=== PATIENT | female | born 1965 | race Caucasian/White ===

== ENCOUNTER 2017-08-28 19:04 | Inpatient (IN) | payer MEDICAID ==
[~2017-08-28] VITALS: Ht 177.8 cm; Wt 87.8 kg
[2017-08-28] MEDS ORDERED: ALLO300T PO (19:14)
[2017-08-28] MEDS ORDERED: SODIUM CHLORIDE 0.9% 1,000ML IVBOLUS ONE (20:00)
[2017-08-28] MEDS ORDERED: ACETAMINOPHEN 325 MG TABLET PO ONE (20:00)
[2017-08-28] MEDS ORDERED: SODIUM CHLORIDE FLUSH 10ML SYR IVF ONE (20:00)
[2017-08-28] MEDS ORDERED: ACETAMINOPHEN 325 MG TABLET ONE (20:10)
[2017-08-28 20:29] LABS: MEAN CORPUSCULAR HEMOGLOBIN 23.8 pg (27.0-34.8); MEAN CORPUSCULAR HGB CONC 32.7 g/dL (32.4-35.8); MEAN CORPUSCULAR VOLUME 72.5 fL (80-100); MEAN PLATELET VOLUME 9.1 fL (7.4-10.4); PLATELET COUNT 166 x10^3/uL (130-400); RED BLOOD COUNT 3.81 x10^6/uL (3.82-5.3); RED CELL DISTRIBUTION WIDTH 20.9 % (9.6-15.2)
[2017-08-28] MEDS ORDERED: AMPICILLIN/SULBACTAM 3 GM in SODIUM CHLORIDE 0.9% 100 ML IV ONE (20:30)
[2017-08-28 20:37] LABS: ALBUMIN 2.6 g/dL (3.4-5.0); ANION GAP 10 mmol/L (5-15); CALCIUM 7.3 mg/dL (8.5-10.1); CHLORIDE 99 mmol/L (98-107)
[2017-08-28 20:39] LABS: INTERNATIONAL NORMALIZED RATIO 1.04 (0.93-1.1); PROTHROMBIN TIME 10.7 Seconds (9.6-11.5)
[2017-08-28 20:41] LABS: ALANINE AMINOTRANSFERASE 15 U/L (12-78); ALKALINE PHOSPHATASE 74 U/L (45-117); CREATININE 0.82 mg/dL (0.55-1.02); TOTAL PROTEIN 6.5 g/dL (6.4-8.2)
[2017-08-28 21:00] LABS: BASOPHILS # (AUTO) 0.06 x10^3/uL (0-0.1); BASOPHILS % (AUTO) 1 % (0-1); EOSINOPHILS % (AUTO) 0 % (1-7); LYMPHOCYTES # (AUTO) 0.65 x10^3/uL (1-3.4); LYMPHOCYTES % (AUTO) 5 % (22-44); MD SCAN; MONOCYTES # (AUTO) 0.37 x10^3/uL (0.2-0.8); MONOCYTES % (AUTO) 3 % (2-9); NEUTROPHILS # (AUTO) 11.47 x10^3/uL (1.8-6.8); NEUTROPHILS % (AUTO) 91 % (42-75)
[2017-08-28 21:34] LABS: MICROSCOPIC INDICATED
[2017-08-28 21:35] LABS: CULTURE INDICATED? YES
[2017-08-28] MEDS ORDERED: DOCUSATE 100 MG CAPSULE PO PRN (22:00)
[2017-08-28] MEDS ORDERED: hydrALAzine 20 MG/ML, 1ML IVPush PRN (22:00)
[2017-08-28] MEDS ORDERED: ONDANSETRON 2MG/ML, 2ML IVPush PRN (22:00)
[2017-08-28] MEDS ORDERED: BISACODYL 10 MG SUPP PR PRN (22:00)
[2017-08-28] MEDS ORDERED: VANCOMYCIN PER PHARMACY MC PRN (22:00)
[2017-08-28] MEDS ORDERED: POLYETHYLENE GLYCOL 17 GM PACKET PO PRN (22:00)
[2017-08-28 22:07] LABS: AMPHETAMINE SCREEN, URINE Negative (Negative); BARBITURATE SCREEN, URINE Negative (Negative); BENZODIAZEPINE SCREEN, URINE Negative (Negative); CANNABINOID SCREEN, URINE Positive (Negative); COCAINE SCREEN, URINE Negative (Negative); METHADONE SCREEN, URINE Negative (Negative); OPIATE SCREEN, URINE Positive (Negative)
[2017-08-28 22:15] VITALS: BP 97/54
[2017-08-28] MEDS ORDERED: PHARMACOKINETIC CONSULTATION MC ONE (22:30)
[2017-08-28] MEDS ORDERED: PHARMACOKINETIC MONITORING MC PRN (22:30)
[2017-08-29] MEDS: VANCOMYCIN 1,600 MG in SODIUM CHLORIDE 0.9% 250 ML IV SCH ×2 (01:09→13:18)
[2017-08-29] MEDS: ENOXAPARIN 40 MG/0.4 ML SQ SCH (01:09)
[2017-08-29] MEDS: SODIUM CHLORIDE 0.9% 1,000 ML IV SCH ×2 (01:10→09:38)
[2017-08-29 01:14] VITALS: BP 97/60
[2017-08-29] MEDS: AMPICILLIN/SULBACTAM 3 GM in SODIUM CHLORIDE 0.9% 100 ML IV SCH ×3 (06:06→17:44)
[2017-08-29 06:12] LABS: BASOPHILS # (AUTO) 0.09 x10^3/uL (0-0.1); BASOPHILS % (AUTO) 1 % (0-1); EOSINOPHILS # (AUTO) 0.01 x10^3/uL (0-0.4); EOSINOPHILS % (AUTO) 0 % (1-7); LYMPHOCYTES # (AUTO) 0.43 x10^3/uL (1-3.4); LYMPHOCYTES % (AUTO) 5 % (22-44); MD NO; MEAN CORPUSCULAR HEMOGLOBIN 24.1 pg (27.0-34.8); MEAN CORPUSCULAR HGB CONC 33.5 g/dL (32.4-35.8); MEAN PLATELET VOLUME 8.7 fL (7.4-10.4); MONOCYTES # (AUTO) 0.22 x10^3/uL (0.2-0.8); MONOCYTES % (AUTO) 2 % (2-9); NEUTROPHILS # (AUTO) 8.63 x10^3/uL (1.8-6.8); NEUTROPHILS % (AUTO) 92 % (42-75); PLATELET COUNT 157 x10^3/uL (130-400); RED CELL DISTRIBUTION WIDTH 21.1 % (9.6-15.2)
[2017-08-29 06:22] LABS: ANION GAP 8 mmol/L (5-15); CALCIUM 7.4 mg/dL (8.5-10.1); CHLORIDE 103 mmol/L (98-107); CREATININE 0.73 mg/dL (0.55-1.02)
[2017-08-29 07:15] VITALS: BP 95/49
[2017-08-29] MEDS: ALLOPURINOL 300 MG TABLET PO SCH (09:38)
[2017-08-29] MEDS: KETOROLAC 30 MG/1 ML IVPush PRN ×3 (09:55→22:06)
[2017-08-29] MEDS: ACETAMINOPHEN 325 MG TABLET PO PRN (09:55)
[2017-08-29 13:12] VITALS: BP 95/61
[2017-08-29 18:38] VITALS: BP 97/68
[2017-08-30] MEDS: AMPICILLIN/SULBACTAM 3 GM in SODIUM CHLORIDE 0.9% 100 ML IV SCH ×5 (00:13→23:59)
[2017-08-30] MEDS: ENOXAPARIN 40 MG/0.4 ML SQ SCH (01:27)
[2017-08-30] MEDS: VANCOMYCIN 1,600 MG in SODIUM CHLORIDE 0.9% 250 ML IV SCH ×2 (01:27→13:22)
[2017-08-30 01:37] VITALS: BP 95/59
[2017-08-30] MEDS: KETOROLAC 30 MG/1 ML IVPush PRN ×3 (04:54→21:12)
[2017-08-30 05:22] LABS: BASOPHILS # (AUTO) 0.03 x10^3/uL (0-0.1); BASOPHILS % (AUTO) 0 % (0-1); EOSINOPHILS # (AUTO) 0.06 x10^3/uL (0-0.4); EOSINOPHILS % (AUTO) 1 % (1-7); LYMPHOCYTES # (AUTO) 0.46 x10^3/uL (1-3.4); LYMPHOCYTES % (AUTO) 7 % (22-44); MD NO; MEAN CORPUSCULAR HEMOGLOBIN 23.8 pg (27.0-34.8); MEAN CORPUSCULAR HGB CONC 32.6 g/dL (32.4-35.8); MEAN CORPUSCULAR VOLUME 72.9 fL (80-100); MEAN PLATELET VOLUME 9.3 fL (7.4-10.4); MONOCYTES # (AUTO) 0.37 x10^3/uL (0.2-0.8); MONOCYTES % (AUTO) 5 % (2-9); NEUTROPHILS # (AUTO) 6.08 x10^3/uL (1.8-6.8); NEUTROPHILS % (AUTO) 87 % (42-75); PLATELET COUNT 175 x10^3/uL (130-400); RED BLOOD COUNT 3.34 x10^6/uL (3.82-5.3)
[2017-08-30 05:26] LABS: ALANINE AMINOTRANSFERASE 16 U/L (12-78); ALBUMIN 2.1 g/dL (3.4-5.0); ANION GAP 7 mmol/L (5-15); CALCIUM 6.9 mg/dL (8.5-10.1); CHLORIDE 104 mmol/L (98-107); CREATININE 0.77 mg/dL (0.55-1.02)
[2017-08-30 05:29] LABS: ALKALINE PHOSPHATASE 66 U/L (45-117); BILIRUBIN,TOTAL 0.3 mg/dL (0.2-1.0); TOTAL PROTEIN 5.5 g/dL (6.4-8.2)
[2017-08-30 06:37] VITALS: BP 97/60
[2017-08-30] MEDS: ALLOPURINOL 300 MG TABLET PO SCH (07:48)
[2017-08-30 12:04] VITALS: BP 105/66
[2017-08-30] MEDS: ACETAMINOPHEN 325 MG TABLET PO PRN (12:18)
[2017-08-30 19:04] VITALS: BP 98/61
[2017-08-31] MEDS: ENOXAPARIN 40 MG/0.4 ML SQ SCH (01:12)
[2017-08-31] MEDS: VANCOMYCIN 1,600 MG in SODIUM CHLORIDE 0.9% 250 ML IV SCH ×2 (01:13→13:31)
[2017-08-31 02:01] VITALS: BP 99/64
[2017-08-31] MEDS: AMPICILLIN/SULBACTAM 3 GM in SODIUM CHLORIDE 0.9% 100 ML IV SCH ×3 (05:41→18:18)
[2017-08-31 07:57] VITALS: BP 102/60
[2017-08-31] MEDS: ALLOPURINOL 300 MG TABLET PO SCH (09:56)
[2017-08-31] MEDS: KETOROLAC 30 MG/1 ML IVPush PRN (09:56)
[2017-08-31 13:13] VITALS: BP 102/64
[2017-08-31] MEDS ORDERED: SULF1TAB24 PO (16:23)
[2017-08-31] MEDS ORDERED: LACT1CAP24 PO (16:23)
[2017-08-31] MEDS ORDERED: AMOX1TAB64 PO (16:23)
[2017-08-31 19:06] VITALS: BP 100/66
[2017-09-01] MEDS: AMPICILLIN/SULBACTAM 3 GM in SODIUM CHLORIDE 0.9% 100 ML IV SCH ×3 (00:19→12:40)
[2017-09-01 01:09] VITALS: BP 113/56
[2017-09-01] MEDS: VANCOMYCIN 1,600 MG in SODIUM CHLORIDE 0.9% 250 ML IV SCH ×2 (01:29→13:33)
[2017-09-01] MEDS: ENOXAPARIN 40 MG/0.4 ML SQ SCH (01:30)
[2017-09-01 06:37] VITALS: BP 105/65
[2017-09-01] MEDS: ALLOPURINOL 300 MG TABLET PO SCH (09:22)
[2017-09-01 14:08] VITALS: BP 108/66
== END 2017-09-01 16:50 | disposition home or self-care (01) | DRG 871 ==
LOC: ED 21:20 → EDIP 21:21 → 3NW 21:59
PROVIDERS: ADMIT Hospitalist; ATTEND Hospitalist
PROC: 0T9B70Z Drainage of Bladder with Drainage Device, Via Natural or Artificial Opening (ICD-10-PCS; principal; 2017-08-28)
DX: A41.9 Sepsis, unspecified organism (principal); E43 Unspecified severe protein-calorie malnutrition; C85.90 Non-Hodgkin lymphoma, unspecified, unspecified site; E87.1 Hypo-osmolality and hyponatremia; L03.115 Cellulitis of right lower limb; L03.116 Cellulitis of left lower limb; N39.0 Urinary tract infection, site not specified; Z66 Do not resuscitate; Z68.27 Body mass index [BMI] 27.0-27.9, adult; D64.9 Anemia, unspecified; F12.90 Cannabis use, unspecified, uncomplicated; F17.210 Nicotine dependence, cigarettes, uncomplicated; K74.60 Unspecified cirrhosis of liver; M10.9 Gout, unspecified; Z83.3 Family history of diabetes mellitus; Z98.84 Bariatric surgery status; Z98.42 Cataract extraction status, left eye; Z98.41 Cataract extraction status, right eye; Z98.51 Tubal ligation status; Z98.891 History of uterine scar from previous surgery; Z90.49 Acquired absence of other specified parts of digestive tract
CPT/HCPCS: 36415; 71045; 80048; 80053; 80202; 80307; 81001; 83605; 83735; 84100; 84145; 85025; 85610; 85730; 87040; 87086; 93970; 96365; J0295; J1650; J1885; J3370; J7030; J7050

== ENCOUNTER → 2017-09-02 | Outpatient (CLI) | payer MEDICAID ==
[~2017-09-02] MED LIST: ALLO300T PO; AMOX1TAB64 PO; LACT1CAP24 PO; SULF1TAB24 PO
== END | disposition home or self-care (01) ==
LOC: PETCFH 08:55
PROVIDERS: ATTEND Internal Medicine Hematology & Oncology
DX: C82.59 Diffuse follicle center lymphoma, extranodal and solid organ sites (principal); R59.1 Generalized enlarged lymph nodes
CPT/HCPCS: A9552

== ENCOUNTER 2017-09-04 18:05 | Inpatient (IN) | payer MEDICAID ==
[~2017-09-04] VITALS: Ht 177.8 cm; Wt 88.2 kg
[2017-09-04] MEDS ORDERED: SODIUM CHLORIDE FLUSH 10ML SYR IVF ONE (19:00)
[2017-09-04] MEDS ORDERED: SODIUM CHLORIDE 0.9% 1,000ML IVBOLUS ONE (19:00)
[2017-09-04] MEDS ORDERED: MORPHINE SULFATE 4 MG/ML, 1ML ONE ×2 (19:11→21:33)
[2017-09-04] MEDS: MORPHINE SULFATE 4 MG/ML, 1ML IV PRN ×2 (19:13→21:39)
[2017-09-04 19:24] LABS: MICROSCOPIC AUTO
[2017-09-04 19:27] LABS: CULTURE INDICATED? YES
[2017-09-04 19:51] LABS: BASOPHILS # (AUTO) 0.01 x10^3/uL (0-0.1); BASOPHILS % (AUTO) 0 % (0-1); EOSINOPHILS # (AUTO) 0.04 x10^3/uL (0-0.4); EOSINOPHILS % (AUTO) 1 % (1-7); LYMPHOCYTES # (AUTO) 0.65 x10^3/uL (1-3.4); LYMPHOCYTES % (AUTO) 12 % (22-44); MD NO; MEAN CORPUSCULAR HEMOGLOBIN 23.7 pg (27.0-34.8); MEAN CORPUSCULAR HGB CONC 32.6 g/dL (32.4-35.8); MEAN CORPUSCULAR VOLUME 72.8 fL (80-100); MEAN PLATELET VOLUME 7.7 fL (7.4-10.4); MONOCYTES # (AUTO) 0.51 x10^3/uL (0.2-0.8); MONOCYTES % (AUTO) 10 % (2-9); NEUTROPHILS % (AUTO) 77 % (42-75); PLATELET COUNT 354 x10^3/uL (130-400); RED BLOOD COUNT 3.42 x10^6/uL (3.82-5.3)
[2017-09-04 19:58] LABS: ALANINE AMINOTRANSFERASE 16 U/L (12-78); ALBUMIN 2.6 g/dL (3.4-5.0); ANION GAP 5 mmol/L (5-15); CALCIUM 8.1 mg/dL (8.5-10.1); CHLORIDE 108 mmol/L (98-107); CREATININE 0.93 mg/dL (0.55-1.02)
[2017-09-04 20:02] LABS: ALKALINE PHOSPHATASE 79 U/L (45-117); BILIRUBIN,TOTAL 0.2 mg/dL (0.2-1.0); TOTAL PROTEIN 6.9 g/dL (6.4-8.2); TROPONIN I < 0.015 ng/mL (0.000-0.045)
[2017-09-04] MEDS ORDERED: OMNIPAQUE 350 MG/ML, 100ML BOTTLE ONE (21:10)
[2017-09-04] MEDS ORDERED: FUROSEMIDE 40 MG/4 ML ONE (21:24)
[2017-09-04] MEDS ORDERED: FUROSEMIDE 100 MG/10 ML IV ONE (21:30)
[2017-09-04 23:30] VITALS: BP 119/75
[2017-09-04] MEDS ORDERED: ACETAMINOPHEN 325 MG TABLET PO PRN (23:30)
[2017-09-04] MEDS ORDERED: DOCUSATE 100 MG CAPSULE PO PRN (23:30)
[2017-09-04] MEDS ORDERED: hydrALAzine 20 MG/ML, 1ML IVPush PRN (23:30)
[2017-09-04] MEDS ORDERED: POLYETHYLENE GLYCOL 17 GM PACKET PO PRN (23:30)
[2017-09-04] MEDS ORDERED: BISACODYL 10 MG SUPP PR PRN (23:30)
[2017-09-05] MEDS: ENOXAPARIN 40 MG/0.4 ML SQ SCH ×2 (00:09→22:14)
[2017-09-05] MEDS ORDERED: HYDROcodone/APAP 10/325 MG TABLET PO ONE (02:00)
[2017-09-05 02:21] VITALS: BP 114/64
[2017-09-05 05:09] LABS: BASOPHILS # (AUTO) 0.01 x10^3/uL (0-0.1); BASOPHILS % (AUTO) 0 % (0-1); EOSINOPHILS # (AUTO) 0.07 x10^3/uL (0-0.4); EOSINOPHILS % (AUTO) 1 % (1-7); LYMPHOCYTES # (AUTO) 0.85 x10^3/uL (1-3.4); LYMPHOCYTES % (AUTO) 17 % (22-44); MD NO; MEAN CORPUSCULAR HEMOGLOBIN 23.9 pg (27.0-34.8); MEAN CORPUSCULAR HGB CONC 32.6 g/dL (32.4-35.8); MEAN CORPUSCULAR VOLUME 73.1 fL (80-100); MEAN PLATELET VOLUME 8.1 fL (7.4-10.4); MONOCYTES # (AUTO) 0.48 x10^3/uL (0.2-0.8); MONOCYTES % (AUTO) 10 % (2-9); NEUTROPHILS # (AUTO) 3.62 x10^3/uL (1.8-6.8); NEUTROPHILS % (AUTO) 72 % (42-75); PLATELET COUNT 314 x10^3/uL (130-400); RED BLOOD COUNT 3.35 x10^6/uL (3.82-5.3); RED CELL DISTRIBUTION WIDTH 20.2 % (9.6-15.2)
[2017-09-05 05:16] LABS: ANION GAP 6 mmol/L (5-15); CALCIUM 8.1 mg/dL (8.5-10.1); CHLORIDE 110 mmol/L (98-107); CREATININE 0.96 mg/dL (0.55-1.02)
[2017-09-05 06:14] VITALS: BP 117/79
[2017-09-05] MEDS: LACTOBACILLUS CHEW TABLET PO SCH ×3 (08:38→22:14)
[2017-09-05] MEDS: ALLOPURINOL 300 MG TABLET PO SCH (08:38)
[2017-09-05] MEDS: SODIUM CHLORIDE FLUSH 10ML SYR IVF SCH ×2 (08:39→19:48)
[2017-09-05] MEDS ORDERED: AMOXICILLIN/CLAV 875-125MG TABLET PO SCH (09:00)
[2017-09-05] MEDS ORDERED: SULFAMETH./TRIMETHOPRIM DS 800MG/160MG TABLET PO SCH (09:00)
[2017-09-05] MEDS ORDERED: HYDROcodone/APAP 5/325 TABLET ONE (10:32)
[2017-09-05] MEDS: HYDROcodone/APAP 5/325 TABLET PO PRN ×3 (10:35→22:14)
[2017-09-05] MEDS ORDERED: GADOBUTROL 10 MMOL/10 ML PFS ONE (12:40)
[2017-09-05 13:05] VITALS: BP 114/78
[2017-09-05 16:00] LABS: AMPHETAMINE SCREEN, URINE Negative (Negative); BARBITURATE SCREEN, URINE Negative (Negative); BENZODIAZEPINE SCREEN, URINE Negative (Negative); CANNABINOID SCREEN, URINE Negative (Negative); COCAINE SCREEN, URINE Negative (Negative); METHADONE SCREEN, URINE Negative (Negative); OPIATE SCREEN, URINE Positive (Negative)
[2017-09-05] MEDS: ONDANSETRON 2MG/ML, 2ML IVPush PRN ×2 (16:13→22:14)
[2017-09-05] MEDS ORDERED: LORazepam 2 MG/ML, 1ML ONE (16:57)
[2017-09-05] MEDS ORDERED: LORazepam 2 MG/ML, 1ML IVPush ONE (17:00)
[2017-09-05 19:24] VITALS: BP 111/69
[2017-09-05] MEDS: AMPICILLIN/SULBACTAM 3 GM in SODIUM CHLORIDE 0.9% 100 ML IV SCH (19:48)
[2017-09-05] MEDS: DOXYCYCLINE 100MG TABLET PO SCH (22:13)
[2017-09-06] MEDS: AMPICILLIN/SULBACTAM 3 GM in SODIUM CHLORIDE 0.9% 100 ML IV SCH ×4 (01:27→19:57)
[2017-09-06] MEDS ORDERED: LORazepam 2 MG/ML, 1ML IVPush ONE (02:00)
[2017-09-06 02:06] VITALS: BP 104/69
[2017-09-06] MEDS ORDERED: LORazepam 2 MG/ML, 1ML ONE (02:07)
[2017-09-06 03:03] LABS: FOLATE LEVEL 11.5 ng/mL (3.1-17.5)
[2017-09-06] MEDS: ONDANSETRON 2MG/ML, 2ML IVPush PRN ×3 (04:16→18:46)
[2017-09-06] MEDS: HYDROcodone/APAP 5/325 TABLET PO PRN ×2 (04:16→18:46)
[2017-09-06 08:00] VITALS: BP 110/68
[2017-09-06] MEDS ORDERED: MORPHINE SULFATE 4 MG/ML, 1ML IVPush PRN (09:30)
[2017-09-06] MEDS: ALLOPURINOL 300 MG TABLET PO SCH (10:12)
[2017-09-06] MEDS: LACTOBACILLUS CHEW TABLET PO SCH ×3 (10:12→19:56)
[2017-09-06] MEDS: DOXYCYCLINE 100MG TABLET PO SCH ×2 (10:12→19:57)
[2017-09-06] MEDS: SODIUM CHLORIDE FLUSH 10ML SYR IVF SCH ×2 (10:12→19:58)
[2017-09-06 13:12] VITALS: BP 106/63
[2017-09-06 19:45] VITALS: BP 116/71
[2017-09-06] MEDS: ENOXAPARIN 40 MG/0.4 ML SQ SCH (19:57)
[2017-09-07] MEDS: AMPICILLIN/SULBACTAM 3 GM in SODIUM CHLORIDE 0.9% 100 ML IV SCH ×4 (03:00→20:31)
[2017-09-07 07:13] VITALS: BP 112/71
[2017-09-07] MEDS: ONDANSETRON 2MG/ML, 2ML IVPush PRN (07:27)
[2017-09-07] MEDS: HYDROcodone/APAP 5/325 TABLET PO PRN ×4 (07:28→23:13)
[2017-09-07] MEDS: SODIUM CHLORIDE FLUSH 10ML SYR IVF SCH ×2 (07:28→20:32)
[2017-09-07] MEDS: LACTOBACILLUS CHEW TABLET PO SCH ×3 (08:55→20:31)
[2017-09-07] MEDS: ALLOPURINOL 300 MG TABLET PO SCH (08:55)
[2017-09-07] MEDS: DOXYCYCLINE 100MG TABLET PO SCH ×2 (08:55→20:31)
[2017-09-07 13:01] VITALS: BP 116/70
[2017-09-07 19:41] VITALS: BP 107/64
[2017-09-07] MEDS: ENOXAPARIN 40 MG/0.4 ML SQ SCH (20:31)
[2017-09-08 02:30] VITALS: BP 101/68
[2017-09-08] MEDS: AMPICILLIN/SULBACTAM 3 GM in SODIUM CHLORIDE 0.9% 100 ML IV SCH ×2 (02:51→09:59)
[2017-09-08] MEDS: HYDROcodone/APAP 5/325 TABLET PO PRN ×5 (03:07→21:09)
[2017-09-08 03:27] LABS: ALANINE AMINOTRANSFERASE 11 U/L (12-78); ALBUMIN 2.3 g/dL (3.4-5.0); ANION GAP 6 mmol/L (5-15); CALCIUM 7.9 mg/dL (8.5-10.1); CHLORIDE 107 mmol/L (98-107); CREATININE 0.84 mg/dL (0.55-1.02)
[2017-09-08 03:30] LABS: ALKALINE PHOSPHATASE 62 U/L (45-117); BILIRUBIN,TOTAL 0.1 mg/dL (0.2-1.0); TOTAL PROTEIN 6.2 g/dL (6.4-8.2)
[2017-09-08 03:31] LABS: BASOPHILS # (AUTO) 0.03 x10^3/uL (0-0.1); BASOPHILS % (AUTO) 1 % (0-1); EOSINOPHILS # (AUTO) 0.05 x10^3/uL (0-0.4); EOSINOPHILS % (AUTO) 2 % (1-7); LYMPHOCYTES # (AUTO) 0.89 x10^3/uL (1-3.4); LYMPHOCYTES % (AUTO) 26 % (22-44); MD NO; MEAN CORPUSCULAR HEMOGLOBIN 23.6 pg (27.0-34.8); MEAN CORPUSCULAR HGB CONC 32.1 g/dL (32.4-35.8); MEAN CORPUSCULAR VOLUME 73.5 fL (80-100); MEAN PLATELET VOLUME 7.5 fL (7.4-10.4); MONOCYTES # (AUTO) 0.36 x10^3/uL (0.2-0.8); MONOCYTES % (AUTO) 10 % (2-9); NEUTROPHILS # (AUTO) 2.16 x10^3/uL (1.8-6.8); NEUTROPHILS % (AUTO) 62 % (42-75); PLATELET COUNT 326 x10^3/uL (130-400); RED BLOOD COUNT 3.21 x10^6/uL (3.82-5.3); RED CELL DISTRIBUTION WIDTH 21.5 % (9.6-15.2)
[2017-09-08 07:23] VITALS: BP 103/76
[2017-09-08] MEDS: LACTOBACILLUS CHEW TABLET PO SCH ×3 (07:26→21:09)
[2017-09-08] MEDS: ALLOPURINOL 300 MG TABLET PO SCH (07:26)
[2017-09-08] MEDS: DOXYCYCLINE 100MG TABLET PO SCH ×2 (07:27→21:10)
[2017-09-08] MEDS: SODIUM CHLORIDE FLUSH 10ML SYR IVF SCH ×2 (09:59→21:10)
[2017-09-08 12:29] VITALS: BP 121/62
[2017-09-08] MEDS: ONDANSETRON 2MG/ML, 2ML IVPush PRN (12:36)
[2017-09-08] MEDS ORDERED: DOXY100T PO (13:22)
[2017-09-08] MEDS ORDERED: HYDR-3240 PO (13:22)
[2017-09-08] MEDS ORDERED: AMOX1TAB12 PO (13:22)
[2017-09-08] MEDS ORDERED: CYANOCOBALAMIN 1,000 MCG/ML, 1ML IM ONE (14:00)
[2017-09-08 19:49] VITALS: BP 103/62
[2017-09-08] MEDS: AMOXICILLIN/CLAV 875-125MG TABLET PO SCH (21:09)
[2017-09-08] MEDS: ENOXAPARIN 40 MG/0.4 ML SQ SCH (21:10)
[2017-09-09 02:00] VITALS: BP 112/63
[2017-09-09 07:17] VITALS: BP 109/66
[2017-09-09] MEDS: SODIUM CHLORIDE FLUSH 10ML SYR IVF SCH (09:19)
[2017-09-09] MEDS: DOXYCYCLINE 100MG TABLET PO SCH (09:20)
[2017-09-09] MEDS: ALLOPURINOL 300 MG TABLET PO SCH (09:20)
[2017-09-09] MEDS: AMOXICILLIN/CLAV 875-125MG TABLET PO SCH (09:20)
[2017-09-09] MEDS: LACTOBACILLUS CHEW TABLET PO SCH (09:20)
[2017-09-09] MEDS: HYDROcodone/APAP 5/325 TABLET PO PRN (09:27)
== END 2017-09-09 10:55 | DRG 603 ==
LOC: ED 20:22 → EDIP 22:52 → 3NW 23:25
PROVIDERS: ADMIT Family Medicine; ATTEND Family Medicine
DX: L03.115 Cellulitis of right lower limb (principal); C85.90 Non-Hodgkin lymphoma, unspecified, unspecified site; E44.0 Moderate protein-calorie malnutrition; L03.116 Cellulitis of left lower limb; D50.9 Iron deficiency anemia, unspecified; D63.8 Anemia in other chronic diseases classified elsewhere; F12.90 Cannabis use, unspecified, uncomplicated; F17.210 Nicotine dependence, cigarettes, uncomplicated; F31.9 Bipolar disorder, unspecified; I89.0 Lymphedema, not elsewhere classified; K74.60 Unspecified cirrhosis of liver; M10.9 Gout, unspecified; Z59.0 Homelessness; Z66 Do not resuscitate; Z83.3 Family history of diabetes mellitus; Z98.84 Bariatric surgery status; Z68.27 Body mass index [BMI] 27.0-27.9, adult
CPT/HCPCS: 36415; 71275; 80048; 80053; 80307; 81001; 82607; 82728; 82746; 83540; 83550; 83605; 83735; 84100; 84484; 85025; 87040; 87086; 93005; 93922; 93970; 96361; 96374; 96375; 96376; A9585; J0295; J1650; J1940; J2405; Q9967; J2060; J3420; J7030

== ENCOUNTER → 2018-01-27 | Outpatient (CLI) | payer MEDICAID ==
[~2018-01-27] MED LIST changes: +AMOX1TAB12 PO; +DOXY100T PO; +HYDR-3240 PO
== END | disposition home or self-care (01) ==
LOC: PETCFH 07:27
PROVIDERS: ATTEND Internal Medicine Hematology & Oncology
DX: R59.0 Localized enlarged lymph nodes (principal); R91.1 Solitary pulmonary nodule; C82.03 Follicular lymphoma grade I, intra-abdominal lymph nodes; C82.59 Diffuse follicle center lymphoma, extranodal and solid organ sites
CPT/HCPCS: 78815; A9552

== ENCOUNTER 2018-04-05 13:14 | Emergency (ER) | payer MEDICAID ==
[~2018-04-05] VITALS: Ht 172.7 cm; Wt 76.0 kg
[2018-04-05] MEDS ORDERED: ALBUTEROL/IPRATROPIUM 2.5MG/0.5MG, 3 ML ONE (14:28)
--- NOTE | 2018-04-05 14:58 | NUR ---
port accessed per patient request. blood unable to be drawn at this time. lab notified and at bedside.
[2018-04-05 15:17] LABS: MEAN CORPUSCULAR HEMOGLOBIN 23.8 pg (27.0-34.8); MEAN CORPUSCULAR HGB CONC 31.9 g/dL (32.4-35.8); MEAN CORPUSCULAR VOLUME 74.5 fL (80-100); MEAN PLATELET VOLUME 9.2 fL (7.4-10.4); PLATELET COUNT 240 x10^3/uL (130-400); RED BLOOD COUNT 4.75 x10^6/uL (3.82-5.3)
[2018-04-05 15:25] LABS: ALBUMIN 3.3 g/dL (3.4-5.0); ANION GAP 7 mmol/L (5-15); CALCIUM 8.8 mg/dL (8.5-10.1); CHLORIDE 105 mmol/L (98-107); CREATININE 0.75 mg/dL (0.55-1.02)
[2018-04-05 15:48] LABS: MD YES
[2018-04-05 15:52] LABS: LYMPH#(MANUAL) 0.52 x10^3/uL (1-3.4); LYMPHS% (MANUAL) 14 % (22-44); MONOS#(MANUAL) 0.48 x10^3/uL (0.3-2.7); MONOS% (MANUAL) 13 % (2-9); SEGS% (MANUAL) 73 % (42-75)
[2018-04-05 15:53] LABS: <PLATELET ESTIMATE> ADEQUATE; ANISOCYTOSIS 1+; HYPOCHROMIA 1+; LARGE PLATELETS 1+; MICROCYTOSIS 1+
--- NOTE | 2018-04-05 15:59 | NUR ---
Patient ambulated with room air for room air trial per Dr. Virgen's instruction, patient tolerated, 96-98% on room air while ambulating. Dr. Virgen notified.
[2018-04-05 16:00] VITALS: BP 107/72
--- NOTE | 2018-04-05 16:31 | NUR ---
Right chest port accessed by prior RN, removed with intact needle, no bleeding, site covered with gauze and tegaderm; patient tolerated well. Discharge instructions discussed with patient, verbalizes understanding, questions answered. Patient ambulates with steady gait to discharge desk in no acute distress.
== END 2018-04-05 16:34 | disposition home or self-care (01) ==
LOC: ED 14:39
DX: J18.1 Lobar pneumonia, unspecified organism (principal)
CPT/HCPCS: 36415; 71046; 80048; 82040; 85025; 93005; 94640; 99284; J7512

== ENCOUNTER 2018-05-31 11:18 | Inpatient (IN) | payer MEDICAID ==
[~2018-05-31] VITALS: Ht 172.7 cm; Wt 78.1 kg
[2018-05-31] MEDS ORDERED: KETOROLAC 30 MG/1 ML IVPush ONE (12:00)
[2018-05-31] MEDS ORDERED: CEFAZOLIN PMX 1GM/50ML 50 ML IV ONE (12:00)
[2018-05-31] MEDS ORDERED: LIDOCAINE 1%, 10ML INFIL ONE (12:00)
[2018-05-31] MEDS ORDERED: SODIUM CHLORIDE FLUSH 10ML SYR IVF ONE (12:00)
[2018-05-31] MEDS ORDERED: ACETAMINOPHEN 500 MG TABLET PO ONE (12:00)
[2018-05-31] MEDS ORDERED: VANCOMYCIN PMX 1GM/200ML 200 ML IVPB ONE (12:00)
[2018-05-31] MEDS ORDERED: VANCOMYCIN PER PHARMACY MC ONE (12:00)
[2018-05-31 12:07] LABS: BASOPHILS # (AUTO) 0.02 x10^3/uL (0-0.1); BASOPHILS % (AUTO) 0 % (0-1); EOSINOPHILS % (AUTO) 0 % (1-7); LYMPHOCYTES # (AUTO) 0.38 x10^3/uL (1-3.4); LYMPHOCYTES % (AUTO) 2 % (22-44); MD NO; MEAN CORPUSCULAR HEMOGLOBIN 25.2 pg (27.0-34.8); MEAN CORPUSCULAR HGB CONC 33.9 g/dL (32.4-35.8); MEAN CORPUSCULAR VOLUME 74.5 fL (80-100); MEAN PLATELET VOLUME 9.6 fL (7.4-10.4); MONOCYTES # (AUTO) 0.67 x10^3/uL (0.2-0.8); MONOCYTES % (AUTO) 4 % (2-9); NEUTROPHILS # (AUTO) 14.57 x10^3/uL (1.8-6.8); NEUTROPHILS % (AUTO) 93 % (42-75); PLATELET COUNT 123 x10^3/uL (130-400); RED CELL DISTRIBUTION WIDTH 21.3 % (9.6-15.2)
[2018-05-31 12:18] LABS: ALANINE AMINOTRANSFERASE 13 U/L (12-78); ALBUMIN 3.4 g/dL (3.4-5.0); ANION GAP 7 mmol/L (5-15); CALCIUM 8.2 mg/dL (8.5-10.1); CHLORIDE 103 mmol/L (98-107); CREATININE 0.78 mg/dL (0.55-1.02)
[2018-05-31 12:20] LABS: ALKALINE PHOSPHATASE 88 U/L (45-117); BILIRUBIN,TOTAL 0.6 mg/dL (0.2-1.0); TOTAL PROTEIN 6.9 g/dL (6.4-8.2)
[2018-05-31] MEDS ORDERED: KETOROLAC 30 MG/1 ML ONE (12:44)
[2018-05-31] MEDS ORDERED: ACETAMINOPHEN 500 MG TABLET ONE (12:44)
[2018-05-31] MEDS ORDERED: MORPHINE SULFATE 4 MG/ML, 1ML ONE (12:44)
[2018-05-31] MEDS ORDERED: CEFAZOLIN PMX 1GM/50ML 50 ML ONE (12:45)
[2018-05-31] MEDS: MORPHINE SULFATE 4 MG/ML, 1ML IVPush PRN ×2 (12:57→15:18)
[2018-05-31] MEDS ORDERED: LABETALOL 5MG/ML, 20ML IVPush PRN (13:30)
[2018-05-31] MEDS ORDERED: ONDANSETRON 2MG/ML, 2ML IVPush PRN (13:30)
[2018-05-31] MEDS ORDERED: hydrALAzine 20 MG/ML, 1ML IVPush PRN (13:30)
[2018-05-31] MEDS ORDERED: LIDOCAINE-MPF 1%, 5ML ONE (13:37)
[2018-05-31] MEDS: SODIUM CHLORIDE 0.9% 1,000 ML IV SCH (13:45)
[2018-05-31] MEDS ORDERED: HEPARIN 5,000 UNITS/ML, 1ML ONE (13:49)
[2018-05-31] MEDS ORDERED: NICOTINE 14MG/24 HR PATCH.TD24 ONE (13:49)
[2018-05-31] MEDS: HEPARIN 5,000 UNITS/ML, 1ML SQ SCH ×2 (13:52→22:59)
[2018-05-31] MEDS: NICOTINE 14MG/24 HR PATCH.TD24 TD SCH (13:53)
[2018-05-31] MEDS: AMPICILLIN/SULBACTAM 3 GM in SODIUM CHLORIDE 0.9% 100 ML IV SCH ×2 (13:53→21:10)
--- NOTE | 2018-05-31 13:57 | NUR ---
SBAR RPT GIVEN TO CORNELIA WILSON. KATIE INFORMED ANCEF GIVEN BUT VANCO IS STILL DUE. NOT REC'D FROM PHARMACY. UNASYN STARTED AND VANCO TO BE GIVEN ON FLOOR.
[2018-05-31] MEDS ORDERED: VANCOMYCIN PER PHARMACY MC PRN (14:00)
[2018-05-31] MEDS ORDERED: PHARMACOKINETIC CONSULTATION MC ONE (14:30)
[2018-05-31] MEDS ORDERED: PHARMACOKINETIC MONITORING MC PRN (14:30)
[2018-05-31 15:30] VITALS: BP 104/68
[2018-05-31] MEDS: VANCOMYCIN 1,400 MG in SODIUM CHLORIDE 0.9% 250 ML IV SCH (15:40)
[2018-05-31] MEDS ORDERED: METHADONE 10 MG TABLET PO ONE (18:30)
[2018-05-31 19:10] VITALS: BP 105/78
[2018-06-01] MEDS: SODIUM CHLORIDE 0.9% 1,000 ML IV SCH ×3 (00:04→20:28)
[2018-06-01 02:22] VITALS: BP 114/75
[2018-06-01] MEDS: AMPICILLIN/SULBACTAM 3 GM in SODIUM CHLORIDE 0.9% 100 ML IV SCH ×4 (02:25→20:28)
[2018-06-01] MEDS ORDERED: ACETAMINOPHEN 325 MG TABLET PO ONE (03:00)
[2018-06-01 08:00] VITALS: BP 109/72
[2018-06-01] MEDS: HEPARIN 5,000 UNITS/ML, 1ML SQ SCH ×2 (08:40→16:42)
[2018-06-01 09:18] LABS: MEAN CORPUSCULAR HEMOGLOBIN 24.5 pg (27.0-34.8); MEAN CORPUSCULAR HGB CONC 32.3 g/dL (32.4-35.8); MEAN CORPUSCULAR VOLUME 75.8 fL (80-100); PLATELET COUNT 102 x10^3/uL (130-400); RED BLOOD COUNT 3.88 x10^6/uL (3.82-5.3); RED CELL DISTRIBUTION WIDTH 21.7 % (9.6-15.2)
[2018-06-01] MEDS: METHADONE INTENSOL 10 MG/ML ORAL CONC PO SCH (09:20)
[2018-06-01 09:23] LABS: ANION GAP 6 mmol/L (5-15); CHLORIDE 110 mmol/L (98-107); CREATININE 0.81 mg/dL (0.55-1.02)
[2018-06-01] MEDS: VANCOMYCIN 1,400 MG in SODIUM CHLORIDE 0.9% 250 ML IV SCH (09:35)
[2018-06-01 09:50] LABS: BASOPHILS # (AUTO) 0.04 x10^3/uL (0-0.1); BASOPHILS % (AUTO) 1 % (0-1); EOSINOPHILS % (AUTO) 0 % (1-7); LYMPHOCYTES % (AUTO) 5 % (22-44); MD SCAN; MONOCYTES % (AUTO) 5 % (2-9); NEUTROPHILS # (AUTO) 5.92 x10^3/uL (1.8-6.8); NEUTROPHILS % (AUTO) 90 % (42-75)
[2018-06-01 14:36] VITALS: BP 117/81
[2018-06-01] MEDS: NICOTINE 14MG/24 HR PATCH.TD24 TD SCH (14:43)
[2018-06-01 19:05] VITALS: BP 115/76
[2018-06-02 02:03] VITALS: BP 106/67
[2018-06-02] MEDS: AMPICILLIN/SULBACTAM 3 GM in SODIUM CHLORIDE 0.9% 100 ML IV SCH ×4 (02:05→22:16)
[2018-06-02] MEDS: HEPARIN 5,000 UNITS/ML, 1ML SQ SCH ×3 (02:05→18:06)
[2018-06-02] MEDS: VANCOMYCIN 1,400 MG in SODIUM CHLORIDE 0.9% 250 ML IV SCH (03:55)
[2018-06-02 07:53] VITALS: BP 121/76
[2018-06-02] MEDS: METHADONE INTENSOL 10 MG/ML ORAL CONC PO SCH (09:19)
[2018-06-02] MEDS: SODIUM CHLORIDE 0.9% 1,000 ML IV SCH ×2 (09:21→18:05)
[2018-06-02] MEDS: NICOTINE 14MG/24 HR PATCH.TD24 TD SCH (09:26)
[2018-06-02 10:32] LABS: ANION GAP 3 mmol/L (5-15); CALCIUM 8.1 mg/dL (8.5-10.1); CHLORIDE 115 mmol/L (98-107); CREATININE 0.64 mg/dL (0.55-1.02)
[2018-06-02 10:57] LABS: BASOPHILS # (AUTO) 0.01 x10^3/uL (0-0.1); BASOPHILS % (AUTO) 0 % (0-1); EOSINOPHILS # (AUTO) 0.12 x10^3/uL (0-0.4); EOSINOPHILS % (AUTO) 3 % (1-7); LYMPHOCYTES # (AUTO) 0.41 x10^3/uL (1-3.4); LYMPHOCYTES % (AUTO) 10 % (22-44); MD SCAN; MEAN CORPUSCULAR HEMOGLOBIN 25.6 pg (27.0-34.8); MEAN CORPUSCULAR HGB CONC 33.5 g/dL (32.4-35.8); MEAN CORPUSCULAR VOLUME 76.5 fL (80-100); MEAN PLATELET VOLUME 10.4 fL (7.4-10.4); MONOCYTES % (AUTO) 10 % (2-9); NEUTROPHILS # (AUTO) 3.11 x10^3/uL (1.8-6.8); NEUTROPHILS % (AUTO) 77 % (42-75); PLATELET COUNT 114 x10^3/uL (130-400); RED BLOOD COUNT 3.79 x10^6/uL (3.82-5.3); RED CELL DISTRIBUTION WIDTH 21.9 % (9.6-15.2)
[2018-06-02 13:29] VITALS: BP 128/80
[2018-06-02 19:15] VITALS: BP 102/67
[2018-06-02] MEDS ORDERED: VANCOMYCIN 1,400 MG in SODIUM CHLORIDE 0.9% 250 ML IV SCH (22:00)
[2018-06-03] MEDS: HEPARIN 5,000 UNITS/ML, 1ML SQ SCH ×2 (01:30→09:37)
[2018-06-03 03:24] VITALS: BP 117/73
[2018-06-03] MEDS: SODIUM CHLORIDE 0.9% 1,000 ML IV SCH ×2 (03:26→11:29)
[2018-06-03] MEDS: AMPICILLIN/SULBACTAM 3 GM in SODIUM CHLORIDE 0.9% 100 ML IV SCH ×2 (03:26→09:37)
[2018-06-03] MEDS ORDERED: CEFD300C37 PO (07:27)
[2018-06-03] MEDS ORDERED: AMOX1TAB64 PO (07:27)
[2018-06-03 07:35] VITALS: BP 119/80
[2018-06-03] MEDS: METHADONE INTENSOL 10 MG/ML ORAL CONC PO SCH (09:36)
[2018-06-03] MEDS ORDERED: VANCOMYCIN 1,400 MG in SODIUM CHLORIDE 0.9% 250 ML IV SCH (11:00)
== END 2018-06-03 13:40 | disposition home or self-care (01) | DRG 872 ==
LOC: ED 11:56 → EDIP 12:57 → 3NE 14:01
PROVIDERS: ADMIT Hospitalist; ATTEND Hospitalist
PROC: 0Y9C0ZZ Drainage of Right Upper Leg, Open Approach (ICD-10-PCS; principal; 2018-05-31)
DX: A41.9 Sepsis, unspecified organism (principal); E44.0 Moderate protein-calorie malnutrition; E87.1 Hypo-osmolality and hyponatremia; L02.415 Cutaneous abscess of right lower limb; L02.416 Cutaneous abscess of left lower limb; L03.115 Cellulitis of right lower limb; L03.116 Cellulitis of left lower limb; A46 Erysipelas; D63.8 Anemia in other chronic diseases classified elsewhere; F31.9 Bipolar disorder, unspecified; K74.60 Unspecified cirrhosis of liver; Z85.72 Personal history of non-Hodgkin lymphomas; Z68.26 Body mass index [BMI] 26.0-26.9, adult
CPT/HCPCS: 36415; 80048; 80053; 80202; 83605; 85025; 87040; 93005; 96365; 96375; 99285; G0378; J0295; J0690; J1644; J1885; J3370; J3490; J7030; J7050

== ENCOUNTER 2018-07-17 22:24 | Emergency (ER) | payer MEDICAID ==
[~2018-07-17] VITALS: Ht 172.7 cm; Wt 77.1 kg
[~2018-07-17 22:24] MED LIST changes: +CEFD300C37 PO
--- NOTE | 2018-07-17 22:50 | NUR ---
BLE'S SWOLLEN POSSIBLE LYMPHADEMA HX OF LYMPHOMA (2011 ). PAIN BURNING BEEN FALLING 3 TIMES D/T LEGS GIVE UP. MONITORS APPLIED, SIDERAILS UP X2, CALL LIGHT WITHIN REACH
[2018-07-17] MEDS ORDERED: FLUO10CA13 PO (22:53)
[2018-07-17] MEDS ORDERED: OXCA150T3 PO (22:53)
[2018-07-17] MEDS ORDERED: QUET25TA5 PO (22:53)
[2018-07-17] MEDS ORDERED: SODIUM CHLORIDE FLUSH 10ML SYR IVF ONE (23:30)
--- NOTE | 2018-07-17 23:36 | NUR ---
MAIN GALLEY SCULLION AT PT'S BEDSIDE
[2018-07-17 23:37] LABS: BASOPHILS # (AUTO) 0.02 x10^3/uL (0-0.1); BASOPHILS % (AUTO) 1 % (0-1); EOSINOPHILS # (AUTO) 0.07 x10^3/uL (0-0.4); EOSINOPHILS % (AUTO) 2 % (1-7); LYMPHOCYTES # (AUTO) 1.04 x10^3/uL (1-3.4); LYMPHOCYTES % (AUTO) 31 % (22-44); MD NO; MEAN CORPUSCULAR HEMOGLOBIN 22.6 pg (27.0-34.8); MEAN CORPUSCULAR HGB CONC 30.8 g/dL (32.4-35.8); MEAN CORPUSCULAR VOLUME 73.1 fL (80-100); MEAN PLATELET VOLUME 10.3 fL (7.4-10.4); MONOCYTES # (AUTO) 0.33 x10^3/uL (0.2-0.8); MONOCYTES % (AUTO) 10 % (2-9); NEUTROPHILS # (AUTO) 1.91 x10^3/uL (1.8-6.8); NEUTROPHILS % (AUTO) 57 % (42-75); PLATELET COUNT 164 x10^3/uL (130-400)
[2018-07-17 23:40] LABS: PROTHROMBIN TIME 10.5 Seconds (9.6-11.5)
[2018-07-17 23:42] LABS: ALANINE AMINOTRANSFERASE 13 U/L (12-78); ALBUMIN 3.3 g/dL (3.4-5.0); ANION GAP 5 mmol/L (5-15); CALCIUM 7.9 mg/dL (8.5-10.1); CHLORIDE 114 mmol/L (98-107); CREATININE 0.89 mg/dL (0.55-1.02)
[2018-07-17 23:46] LABS: ALKALINE PHOSPHATASE 82 U/L (45-117); TOTAL PROTEIN 6.3 g/dL (6.4-8.2)
[2018-07-17 23:47] LABS: BILIRUBIN,TOTAL < 0.1 mg/dL (0.2-1.0)
--- NOTE | 2018-07-18 00:31 | NUR ---
PT RESTING CALMLY, MONITORS IN PLACE, CALL LIGHT WITHIN REACH. AWAITING CT RESULT
--- NOTE | 2018-07-18 01:34 | NUR ---
PT RESTING ON GURNEY, MONITORS IN PLACE, CALL LIGHT WITHIN REACH, PT DENIES NEEDS AT THIS TIME
[2018-07-18 02:10] VITALS: BP 106/68
--- NOTE | 2018-07-18 02:10 | NUR ---
PT IS RESTING VSS STABLE STILL WAITING FOR CT RESULT
--- NOTE | 2018-07-18 02:12 | NUR ---
CALLED RAD REGARDING RSULT
--- NOTE | 2018-07-18 02:52 | NUR ---
attmpted to deacess pt's port, found pt in her room getting dressed, pt refused to let this rn deacess her port, pt abruptly left room and went down hallway, pt continued to refuse deacess of port and left hospital. rpd called and informed pt left with port acess.
== END 2018-07-18 02:58 | disposition left against medical advice (07) ==
LOC: ED 07-18 00:40
DX: R60.0 Localized edema (principal); R59.1 Generalized enlarged lymph nodes; C85.90 Non-Hodgkin lymphoma, unspecified, unspecified site; Z86.19 Personal history of other infectious and parasitic diseases
CPT/HCPCS: 36415; 74177; 80053; 83880; 85025; 85610; 85730; 93970; 99284

== ENCOUNTER 2019-01-18 09:43 | Outpatient (CLI) | payer MEDICAID ==
[~2019-01-18 09:43] MED LIST changes: +FERR325T16 PO; +FLUO10CA13 PO; +METH10OR PO; +MIRT15TA3 PO; +NICO-486 TD; +ONDA4TAB12 PO; +OXCA150T3 PO; +QUET25TA5 PO; +SIMV40TA PO
[2019-01-18] MEDS ORDERED: OMNIPAQUE 350 MG/ML, 100ML BOTTLE ONE (13:43)
== END 2019-01-18 23:59 | disposition home or self-care (01) ==
LOC: CFH 09:43
PROVIDERS: ATTEND Internal Medicine Hematology & Oncology
DX: C82.03 Follicular lymphoma grade I, intra-abdominal lymph nodes (principal); R59.1 Generalized enlarged lymph nodes; R16.1 Splenomegaly, not elsewhere classified; R91.1 Solitary pulmonary nodule; F17.200 Nicotine dependence, unspecified, uncomplicated
CPT/HCPCS: 71260; 74177; Q9967

== ENCOUNTER → 2019-02-22 | Outpatient (CLI) | payer MEDICAID | END | disposition home or self-care (01) | LOC: PETCFH 13:19 | PROVIDERS: ATTEND Internal Medicine Hematology & Oncology | DX: C82.59 Diffuse follicle center lymphoma, extranodal and solid organ sites (principal); C82.03 Follicular lymphoma grade I, intra-abdominal lymph nodes; F17.200 Nicotine dependence, unspecified, uncomplicated; F12.10 Cannabis abuse, uncomplicated | CPT/HCPCS: 78815; A9552 ==

== ENCOUNTER 2019-03-02 12:36 | Outpatient (CLI) | payer MEDICAID ==
[2019-03-02] MEDS ORDERED: LIDOCAINE-MPF 1%, 5ML ONE (13:03)
== END 2019-03-02 23:59 | disposition home or self-care (01) ==
LOC: RAD 12:36
PROVIDERS: ATTEND Internal Medicine Hematology & Oncology
DX: C82.03 Follicular lymphoma grade I, intra-abdominal lymph nodes (principal)
CPT/HCPCS: 38505; 76942; 88305; 88341; 88342

== ENCOUNTER 2019-03-08 19:53 | Emergency (ER) | payer MEDICAID ==
[~2019-03-08] VITALS: Ht 172.7 cm; Wt 92.0 kg
[2019-03-08 20:04] VITALS: BP 152/97
[2019-03-08] MEDS ORDERED: ZIPRASIDONE 20 MG INJ IM ONE ×2 (20:14→20:30)
--- NOTE | 2019-03-08 20:18 | NUR ---
PT PACING AROUND ROOM, BACK AND FORTH TO THE RESTROOM. UA AND UDS COLLECTED AND SENT TO LAB.
[2019-03-08 20:38] LABS: AMPHETAMINE SCREEN, URINE Negative (Negative); BARBITURATE SCREEN, URINE Negative (Negative); BENZODIAZEPINE SCREEN, URINE Negative (Negative); CANNABINOID SCREEN, URINE Positive (Negative); COCAINE SCREEN, URINE Negative (Negative); METHADONE SCREEN, URINE Positive (Negative); OPIATE SCREEN, URINE Negative (Negative)
[2019-03-08 21:36] LABS: ALANINE AMINOTRANSFERASE 19 U/L (12-78); ALBUMIN 3.3 g/dL (3.4-5.0); ANION GAP 7 mmol/L (5-15); CALCIUM 7.9 mg/dL (8.5-10.1); CHLORIDE 109 mmol/L (98-107)
[2019-03-08 21:38] LABS: ALKALINE PHOSPHATASE 76 U/L (45-117); BILIRUBIN,TOTAL 0.4 mg/dL (0.2-1.0); TOTAL PROTEIN 6.6 g/dL (6.4-8.2)
[2019-03-08 21:52] LABS: MEAN CORPUSCULAR HEMOGLOBIN 22.2 pg (27.0-34.8); MEAN CORPUSCULAR HGB CONC 31.3 g/dL (32.4-35.8); MEAN CORPUSCULAR VOLUME 70.8 fL (80-100); MEAN PLATELET VOLUME 9.5 fL (7.4-10.4); PLATELET COUNT 95 x10^3/uL (130-400); RED CELL DISTRIBUTION WIDTH 19.6 % (9.6-15.2)
[2019-03-08 21:54] LABS: BASOPHILS % (AUTO) 0 % (0-1); EOSINOPHILS # (AUTO) 0.02 x10^3/uL (0-0.4); EOSINOPHILS % (AUTO) 0 % (1-7); LYMPHOCYTES # (AUTO) 0.41 x10^3/uL (1-3.4); LYMPHOCYTES % (AUTO) 4 % (22-44); MD MORPH REVIEW ONLY; MONOCYTES # (AUTO) 0.09 x10^3/uL (0.2-0.8); MONOCYTES % (AUTO) 1 % (2-9); NEUTROPHILS # (AUTO) 11.35 x10^3/uL (1.8-6.8); NEUTROPHILS % (AUTO) 96 % (42-75)
[2019-03-08 21:55] LABS: <PLATELET ESTIMATE> DECREASED; <PLT MORPHOLOGY> NORMAL PLT MORPH; PMNS WITH VACUOLES 1+
[2019-03-08 21:56] LABS: ANISOCYTOSIS 1+; MICROCYTOSIS 1+; SCHISTOCYTES 1+
[2019-03-08 21:57] LABS: OVALOCYTES 1+
== END 2019-03-08 22:54 | disposition home or self-care (01) ==
LOC: ED 20:14
DX: G25.81 Restless legs syndrome (principal); F41.1 Generalized anxiety disorder; F17.200 Nicotine dependence, unspecified, uncomplicated; Z98.51 Tubal ligation status
CPT/HCPCS: 36415; 80053; 80307; 85025; 96372; 99283; J3486

== ENCOUNTER 2019-03-24 18:21 | Emergency (ER) | payer MEDICAID ==
[~2019-03-24] VITALS: Ht 172.7 cm; Wt 91.0 kg
[2019-03-24 18:27] VITALS: BP 169/87
--- NOTE | 2019-03-24 18:37 | NUR ---
TO ROOM FROM LOBBY. NAD.
--- NOTE | 2019-03-24 18:43 | NUR ---
RPT RECEIVED FROM RN, ASSUMED CARE OF PT.
[2019-03-24] MEDS ORDERED: SODIUM CHLORIDE FLUSH 10ML SYR IVF ONE (19:00)
[2019-03-24] MEDS ORDERED: ONDANSETRON 2MG/ML, 2ML IVPush ONE (19:00)
[2019-03-24] MEDS ORDERED: MORPHINE SULFATE 4 MG/ML, 1ML ONE ×2 (19:22→21:38)
[2019-03-24] MEDS ORDERED: ONDANSETRON 2MG/ML, 2ML ONE (19:22)
[2019-03-24] MEDS: MORPHINE SULFATE 4 MG/ML, 1ML IVPush PRN ×2 (19:25→21:41)
[2019-03-24 19:33] LABS: BASOPHILS # (AUTO) 0.12 x10^3/uL (0-0.1); BASOPHILS % (AUTO) 2 % (0-1); EOSINOPHILS # (AUTO) 0.09 x10^3/uL (0-0.4); EOSINOPHILS % (AUTO) 2 % (1-7); LYMPHOCYTES # (AUTO) 0.69 x10^3/uL (1-3.4); LYMPHOCYTES % (AUTO) 13 % (22-44); MD NO; MEAN CORPUSCULAR HEMOGLOBIN 23.5 pg (27.0-34.8); MEAN CORPUSCULAR HGB CONC 32.4 g/dL (32.4-35.8); MEAN CORPUSCULAR VOLUME 72.4 fL (80-100); MEAN PLATELET VOLUME 7.8 fL (7.4-10.4); MONOCYTES # (AUTO) 0.55 x10^3/uL (0.2-0.8); MONOCYTES % (AUTO) 11 % (2-9); NEUTROPHILS % (AUTO) 72 % (42-75); PLATELET COUNT 366 x10^3/uL (130-400); RED BLOOD COUNT 3.68 x10^6/uL (3.82-5.3); RED CELL DISTRIBUTION WIDTH 20.5 % (9.6-15.2)
[2019-03-24 19:39] LABS: ALANINE AMINOTRANSFERASE 10 U/L (12-78); ALBUMIN 3.4 g/dL (3.4-5.0); ANION GAP 4 mmol/L (5-15); CALCIUM 8.1 mg/dL (8.5-10.1); CHLORIDE 109 mmol/L (98-107); CREATININE 0.91 mg/dL (0.55-1.02)
[2019-03-24 19:43] LABS: ALKALINE PHOSPHATASE 69 U/L (45-117); BILIRUBIN,TOTAL 0.2 mg/dL (0.2-1.0); TOTAL PROTEIN 6.6 g/dL (6.4-8.2)
[2019-03-24 21:08] LABS: MICROSCOPIC NOT IND
[2019-03-24 21:17] LABS: CULTURE INDICATED? NO
== END 2019-03-24 22:29 | disposition home or self-care (01) ==
LOC: ED 18:53
DX: M79.661 Pain in right lower leg (principal); M79.662 Pain in left lower leg; M25.561 Pain in right knee; M25.562 Pain in left knee; M79.652 Pain in left thigh; M79.651 Pain in right thigh; M25.571 Pain in right ankle and joints of right foot; M25.572 Pain in left ankle and joints of left foot; M71.22 Synovial cyst of popliteal space [Baker], left knee; M71.21 Synovial cyst of popliteal space [Baker], right knee; I89.0 Lymphedema, not elsewhere classified
CPT/HCPCS: 36415; 71045; 80053; 81003; 83880; 85025; 86850; 86900; 93005; 93970; 96374; 96375; 96376; 99284; J2270; J2405

== ENCOUNTER → 2019-04-28 | Outpatient (CLI) | payer MEDICAID ==
[~2019-04-28] MED LIST changes: +LIDOCAINE 1%, 10ML ONE; +ONDA-89 PO; -ONDA4TAB12 PO
== END | disposition home or self-care (01) ==
LOC: RAD 11:35
PROVIDERS: ATTEND Internal Medicine Hematology & Oncology
DX: M71.22 Synovial cyst of popliteal space [Baker], left knee (principal); C82.03 Follicular lymphoma grade I, intra-abdominal lymph nodes
CPT/HCPCS: 93970; J3490

== ENCOUNTER → 2019-05-25 | Outpatient (CLI) | payer MEDICAID ==
[~2019-05-25] MED LIST changes: -LIDOCAINE 1%, 10ML ONE
== END | disposition home or self-care (01) ==
LOC: PETCFH 08:27
PROVIDERS: ATTEND Internal Medicine Hematology & Oncology
DX: C82.03 Follicular lymphoma grade I, intra-abdominal lymph nodes (principal); R59.1 Generalized enlarged lymph nodes; R16.1 Splenomegaly, not elsewhere classified
CPT/HCPCS: 78815; A9552

== ENCOUNTER → 2019-08-02 | Outpatient (CLI) | payer MEDICAID | END | disposition home or self-care (01) | LOC: PETCFH 09:36 | PROVIDERS: ATTEND Internal Medicine Hematology & Oncology | DX: C82.03 Follicular lymphoma grade I, intra-abdominal lymph nodes (principal); R59.0 Localized enlarged lymph nodes | CPT/HCPCS: 78815; A9552 ==

== ENCOUNTER 2019-11-27 16:19 | Emergency (ER) | payer MEDICAID ==
[~2019-11-27] VITALS: Ht 172.7 cm; Wt 92.7 kg
--- NOTE | 2019-11-27 17:30 | NUR ---
PER OK TO DRAW FROM ANKLE/FOOT
[2019-11-27] MEDS ORDERED: ACETAMINOPHEN 500 MG TABLET PO ONE (18:00)
--- NOTE | 2019-11-27 18:08 | NUR ---
URINE SAMPLE WALKED TO LAB
[2019-11-27 18:09] LABS: BASOPHILS # (AUTO) 0.02 x10^3/uL (0-0.1); BASOPHILS % (AUTO) 0 % (0-1); EOSINOPHILS # (AUTO) 0.03 x10^3/uL (0-0.4); EOSINOPHILS % (AUTO) 0 % (1-7); LYMPHOCYTES % (AUTO) 6 % (22-44); MD NO; MEAN CORPUSCULAR HEMOGLOBIN 32.5 pg (27.0-34.8); MEAN CORPUSCULAR HGB CONC 34.2 g/dL (32.4-35.8); MEAN CORPUSCULAR VOLUME 94.8 fL (80-100); MEAN PLATELET VOLUME 8.9 fL (7.4-10.4); MONOCYTES # (AUTO) 0.68 x10^3/uL (0.2-0.8); MONOCYTES % (AUTO) 8 % (2-9); NEUTROPHILS # (AUTO) 7.23 x10^3/uL (1.8-6.8); NEUTROPHILS % (AUTO) 86 % (42-75); PLATELET COUNT 117 x10^3/uL (130-400); RED BLOOD COUNT 3.95 x10^6/uL (3.82-5.3)
[2019-11-27 18:10] LABS: ALANINE AMINOTRANSFERASE 13 U/L (12-78); ALBUMIN 3.9 g/dL (3.4-5.0); ANION GAP 8 mmol/L (5-15); CALCIUM 8.8 mg/dL (8.5-10.1); CHLORIDE 107 mmol/L (98-107)
[2019-11-27 18:14] LABS: ALKALINE PHOSPHATASE 81 U/L (45-117); BILIRUBIN,TOTAL 0.4 mg/dL (0.2-1.0); TROPONIN I < 0.015 ng/mL (0.000-0.045)
[2019-11-27 18:25] LABS: MICROSCOPIC AUTO
[2019-11-27 18:30] LABS: RAPID INFLUENZA A Negative (Negative); RAPID INFLUENZA B Negative (Negative)
--- NOTE | 2019-11-27 18:54 | NUR ---
PT RESTING IN [facility], AWAITING LAB RESULTS. CALL LIGHT WITHIN REACH. PT ON MONITOR
[2019-11-27 19:05] VITALS: BP 111/70
--- NOTE | 2019-11-27 19:21 | NUR ---
RECEIVED REPORT FROM CORNELIA MIRANDA AT APROXIMATELY 1905; WICHO BURTON WAS IN TO DISCUSS PLAN FOR D/C WITH PT. AT THAT TIME. PT. REMOVED ALL MONITORS AND GOT DRESSED. PT. STATED SHE HAD A RIDE WAITING OUT FRONT FOR HER AND REFUSED THE TYLENOL THAT HAD BEEN PREVIOUSLY ORDERED. PT. VERBALIZED UNDERSTANDING OF IMPORTANCE OF GETTING RX FOR ABX FILLED. PT. SKIN PWD. NO DISTRESS NOTED. AMBULATORY OUT OF ED WITH STEADY GAIT.
== END 2019-11-27 19:24 ==
LOC: ED 18:33
DX: N39.0 Urinary tract infection, site not specified (principal); R53.83 Other fatigue; R50.9 Fever, unspecified
CPT/HCPCS: 36415; 71045; 80053; 81001; 83605; 84443; 84484; 85025; 87040; 87086; 87400; 87635; 93005; 99285

== ENCOUNTER 2020-07-17 18:21 | Emergency (ER) | payer MEDICAID ==
[~2020-07-17] VITALS: Ht 172.7 cm; Wt 87.9 kg
[~2020-07-17 18:21] MED LIST changes: -METH40TA3 PO
--- NOTE | 2020-07-17 18:38 | NUR ---
[employer] SUPERVISOR: PT TO ROOM VIA WHEELCHAIR FROM JESSICA
--- NOTE | 2020-07-17 18:48 | NUR ---
REPORT FROM HALIE RN, PT CARE TRANSFERRED AT THIS TIME. PT NAD, RESTING ON GURNEY, VSS, BED IN [facility], RAILS ENGAGED, CALL LIGHT ON LAP, WCTM.
--- NOTE | 2020-07-17 18:51 | NUR ---
REPORT TO CHENCHO
[2020-07-17 19:05] LABS: ANION GAP 8 mmol/L (5-15); CALCIUM 8.7 mg/dL (8.5-10.1); CHLORIDE 107 mmol/L (98-107)
[2020-07-17 19:07] LABS: CREATININE 0.75 mg/dL (0.55-1.02)
[2020-07-17 19:10] LABS: BASOPHILS % (AUTO) 1 % (0-1); EOSINOPHILS % (AUTO) 4 % (1-7); LYMPHOCYTES % (AUTO) 14 % (22-44); MEAN CORPUSCULAR HEMOGLOBIN 26.7 pg (27.0-34.8); MEAN CORPUSCULAR HGB CONC 33.3 g/dL (32.4-35.8); MEAN PLATELET VOLUME 8.2 fL (7.4-10.4); MONOCYTES % (AUTO) 10 % (2-9); NEUTROPHILS % (AUTO) 71 % (42-75); PLATELET COUNT 175 x10^3/uL (130-400); RED BLOOD COUNT 4.07 x10^6/uL (3.82-5.3); RED CELL DISTRIBUTION WIDTH 16.6 % (9.6-15.2)
[2020-07-17 19:13] LABS: INTERNATIONAL NORMALIZED RATIO 1.01 (0.93-1.1); PROTHROMBIN TIME 10.8 Seconds (9.6-11.5)
[2020-07-17] MEDS ORDERED: METH40TA3 PO (19:13)
[2020-07-17 19:14] LABS: MD NO
[2020-07-17 19:47] LABS: ALBUMIN 3.7 g/dL (3.4-5.0); BILIRUBIN, DIRECT 0.1 mg/dL (0.1-0.2)
[2020-07-17 19:49] LABS: BILIRUBIN,INDIRECT 0.3 mg/dL (0.0-2.0); BILIRUBIN,TOTAL 0.4 mg/dL (0.2-1.0); TOTAL PROTEIN 7.2 g/dL (6.4-8.2)
[2020-07-17] MEDS ORDERED: RIVAROXABAN 20 MG TABLET ONE (19:59)
[2020-07-17] MEDS ORDERED: RIVAROXABAN 20 MG TABLET PO ONE (20:00)
[2020-07-17 20:02] VITALS: BP 125/73
--- NOTE | 2020-07-17 20:12 | NUR ---
Patient given discharge instructions and they have confirmed that they understand the instructions. Patient ambulatory with steady gait. NAD, ALL QUESTIONS ANSWERED APPROPRIATELY, PT DENIES ADDITIONAL NEEDS AT THIS TIME. VSS UPON DC. NO PERSONAL BELONGINGS LEFT IN ROOM AFTER DC.
== END 2020-07-17 20:30 | disposition home or self-care (01) ==
LOC: ED 20:26
DX: I82.432 Acute embolism and thrombosis of left popliteal vein (principal); M79.662 Pain in left lower leg; M79.89 Other specified soft tissue disorders; Z85.9 Personal history of malignant neoplasm, unspecified; Z98.51 Tubal ligation status
CPT/HCPCS: 36415; 80048; 80076; 85025; 85610; 85730; 99283

== ENCOUNTER → 2020-07-17 | Outpatient (CLI) | payer MEDICAID ==
[~2020-07-17] MED LIST changes: +FERR324T23 PO; -FERR325T16 PO; +HYDR-2214 PO; -HYDR-3240 PO; +METH40TA3 PO; +SULF-23 PO; -SULF1TAB24 PO
== END | disposition home or self-care (01) ==
LOC: CFH 15:53
PROVIDERS: ATTEND Internal Medicine Hematology & Oncology
DX: C82.03 Follicular lymphoma grade I, intra-abdominal lymph nodes (principal); I82.432 Acute embolism and thrombosis of left popliteal vein

== ENCOUNTER 2020-08-02 06:08 | Day surgery (SDC) | payer MEDICAID ==
[~2020-08-02] VITALS: Ht 172.7 cm; Wt 89.0 kg
[~2020-08-02 06:08] MED LIST changes: +METH40TA3 PO
[2020-08-02] MEDS ORDERED: SODIUM CHLORIDE 0.9% 1,000 ML IV SCH (06:30)
[2020-08-02 07:02] VITALS: BP 130/81
[2020-08-02] MEDS ORDERED: FENTANYL PF 100 MCG/2ML ONE (09:03)
[2020-08-02] MEDS ORDERED: MIDAZOLAM 1 MG/ML, 5ML ONE (09:03)
[2020-08-02] MEDS ORDERED: NALOXONE 1 MG/ML, 2ML ONE (09:04)
[2020-08-02] MEDS ORDERED: FLUMAZENIL 0.1 MG/1 ML, 5ML ONE (09:04)
[2020-08-02] MEDS ORDERED: OMNIPAQUE 350 MG/ML, 100ML BOTTLE ONE (09:47)
== END 2020-08-02 10:30 | disposition home or self-care (01) ==
LOC: OUT 06:08
PROVIDERS: ATTEND Internal Medicine Hematology & Oncology
DX: C82.03 Follicular lymphoma grade I, intra-abdominal lymph nodes (principal)
CPT/HCPCS: 49180; 74177; 77012; 88305; 88341; 88342; 99156; J2250; J3010; J7030; Q9967; 99157; J2310

== ENCOUNTER 2020-10-13 12:38 | Emergency (ER) | payer MEDICAID ==
[~2020-10-13] VITALS: Ht 172.7 cm; Wt 82.3 kg
--- NOTE | 2020-10-13 13:08 | NUR ---
ASSUMED CARE OF PT. SHE IS HERE W/ C/O DIFFICULTY BREATHING HARD, DIFFICULTY TAKING DEEP BREATHE, HANDS FEEL NUMB AND TINGLY. PT HAS LYMPHOMA CANCER AND IS CURRENTLY UNDER TX RECEIVING INFUSION CHEMO AND PO. PT PLACED IN GOWN, AND ATTACHED TO BP/SPO2 MONITOR. NADN, CALL LIGHT W/IN REACH.
[2020-10-13] MEDS ORDERED: SODIUM CHLORIDE FLUSH 10ML SYR IVF ONE (13:30)
--- NOTE | 2020-10-13 14:00 | NUR ---
ATTEMPTED TO LOOK FOR PIV, BUT PT REPORTS SHE IS A DIFFICULT FOR IV AND THEY USE US IV. UNABLE TO PALPATE ANYTHING UPPER ARM FOR CTA. WILL FIND HELP. VSS, GURJITN, CALL LIGHTW/IN REACH.
[2020-10-13 14:16] LABS: BASOPHILS % (AUTO) 1 % (0-1); EOSINOPHILS % (AUTO) 12 % (1-7); LYMPHOCYTES % (AUTO) 19 % (22-44); MEAN CORPUSCULAR HEMOGLOBIN 28.5 pg (27.0-34.8); MEAN CORPUSCULAR HGB CONC 34.3 g/dL (32.4-35.8); MEAN PLATELET VOLUME 8.9 fL (7.4-10.4); MONOCYTES % (AUTO) 16 % (2-9); NEUTROPHILS % (AUTO) 52 % (42-75); PLATELET COUNT 93 x10^3/uL (130-400); RED BLOOD COUNT 4.38 x10^6/uL (3.82-5.3); RED CELL DISTRIBUTION WIDTH 28.2 % (9.6-15.2)
--- NOTE | 2020-10-13 14:21 | NUR ---
PT HAS A PORT FOR CHEMO, MID LEVEL GAME DESIGNER CALLED AND SAID THAT A PORT CAN BE UTILIZED FOR THE CTA. DR. RAMIRES GAVE VERBAL CONSENT TO ACCESS PORT FOR CTA PURPOSES. TASK RN WILL ASSIST IN OBTAINING ACCESS.
[2020-10-13 14:26] LABS: ALANINE AMINOTRANSFERASE 15 U/L (12-78); ALBUMIN 3.6 g/dL (3.4-5.0); ANION GAP 7 mmol/L (5-15); CALCIUM 8.4 mg/dL (8.5-10.1); CHLORIDE 105 mmol/L (98-107); CREATININE 0.78 mg/dL (0.55-1.02)
[2020-10-13 14:31] LABS: ALKALINE PHOSPHATASE 74 U/L (45-117); BILIRUBIN,TOTAL 0.4 mg/dL (0.2-1.0); TOTAL PROTEIN 7.2 g/dL (6.4-8.2); TROPONIN I < 0.015 ng/mL (0.000-0.045)
--- NOTE | 2020-10-13 14:57 | NUR ---
PT TO CTA
--- NOTE | 2020-10-13 15:03 | NUR ---
RADIOLOGY AND LAB BEDSIDE. PT PROVDIED WARM BLANKET. NADN. CALL LIGHT W/IN REACH.
[2020-10-13] MEDS ORDERED: OMNIPAQUE 350 MG/ML, 75ML BOTTLE ONE (15:13)
[2020-10-13 15:34] VITALS: BP 115/74
--- NOTE | 2020-10-13 15:35 | NUR ---
PT UP TO BATHROOM AND BACK W/O INCIDENT. STEADY GAIT. NADN. CALL LIGHT W/ IN REACH.
--- NOTE | 2020-10-13 16:21 | NUR ---
Patient given discharge instructions and they have confirmed that they understand the instructions. Patient ambulatory with steady gait.
== END 2020-10-13 16:28 | disposition home or self-care (01) ==
LOC: ED 16:13
DX: R07.89 Other chest pain (principal); R06.00 Dyspnea, unspecified; R42 Dizziness and giddiness; R94.31 Abnormal electrocardiogram [ECG] [EKG]; J45.909 Unspecified asthma, uncomplicated; F17.200 Nicotine dependence, unspecified, uncomplicated; Z86.718 Personal history of other venous thrombosis and embolism
CPT/HCPCS: 36415; 71045; 71275; 80053; 83880; 84484; 85025; 93005; 99285; Q9967

== ENCOUNTER → 2020-10-25 | Outpatient (CLI) | payer MEDICAID ==
[~2020-10-25] MED LIST changes: +OMNIPAQUE 350 MG/ML, 100ML BOTTLE ONE
== END | disposition home or self-care (01) ==
LOC: CFH 11:50
PROVIDERS: ATTEND Internal Medicine Hematology & Oncology
DX: C82.03 Follicular lymphoma grade I, intra-abdominal lymph nodes (principal); N13.30 Unspecified hydronephrosis; M51.37 Other intervertebral disc degeneration, lumbosacral region; R16.1 Splenomegaly, not elsewhere classified
CPT/HCPCS: 74177; Q9967